=== PATIENT | female | born 1940 | race Caucasian/White ===

== ENCOUNTER 2023-02-20 15:54 | Outpatient (AMB) | payer MEDICARE, SELFPAY ==
--- NOTE | 2023-02-20 16:00 | HO.NEPHOV ---
HPI HPI Comments History of Present Illness Details Gwen is a delightful 82-year-old female whom I had the pleasure of seeing in follow-up of her history of hypertension and mild proteinuria on a background of acquired absence of one kidney. She carries a diagnosis of liver cirrhosis. It had been compensated but there had been mentions of liver dysfunction during her recent hospitalizations. Her blood sugar control continues to be suboptimal. She has no edema, abdominal distention, weight gain, abdominal pain, nausea, vomiting, diarrhea, hematemesis, melena, confusion or reduced urine output. Her appetite is good. She is regularly followed up by her primary care team. She was accompanied by her daughter during this current office visit. [facility] Medical History (Updated 02/21/23 @ 04:49 by Diego Linton MD) CHF (congestive heart failure) CVA (cerebral vascular accident) CAD (coronary artery disease) Anemia of chronic disease Liver cirrhosis Hypertension Proteinuria Surgical History (Updated 02/20/23 @ 16:12 by Barbara Lora MA) History of nephrectomy Social History (Updated 02/20/23 @ 16:12 by Barbara Lora MA) Alcohol intake: never Patient Tobacco Use Status: Never used Tobacco Vital Signs 02/20/23 16:01 Height 4 ft 11 in Weight 167 lb 4 oz BMI 33.8 BP 130/70 Blood Pressure Location Rt brachial Position Sitting Pulse 99 Pulse Source Pulse Oximeter Pulse Oximetry (%) 98 Oxygen Delivery Method Room Air Physical Exam Vital Signs: Last Vital Signs Pulse 99 02/20/23 16:01 BP 130/70 02/20/23 16:01 Pulse Ox 98 02/20/23 16:01 Oxygen Delivery Method Room Air 02/20/23 16:01 BMI result Body Mass Index 33.8 Const General: comfortable and no acute distress Orientation/consciousness: patient oriented x3 HEENT Head: Yes normocephalic Mouth: Normal oral and palatal mucosa present Eyes EOM: EOMs intact bilaterally Neck Neck: Yes supple Resp Auscultation: clear to auscultation bilaterally Cardio Jugular venous distension: no JVD Rate: regular rate GI Palpation (GI): Soft to palpation Auscultation: normal bowel sounds General: Yes no CVA tenderness Back/Spine/Pelvis Back: no CVA tenderness Skin General skin exam: no rashes or lesions noted Neuro General: patient oriented x3 and moves all extremities Extrem General: Yes no pedal edema Assessment & Plan Assessment & Plan (1) Acquired solitary kidney: Code(s): Z90.5 - Acquired absence of kidney (2) Hypertension: Code(s): I10 - Essential (primary) hypertension Qualifiers: Hypertension type: primary hypertension Qualified Code(s): I10 - Essential (primary) hypertension (3) Anemia of chronic disease: Code(s): D63.8 - Anemia in other chronic diseases classified elsewhere Plan Gwen had unilateral renal cell cancer and had undergone nephrectomy. She has diabetic, hypertensive with history of compensated liver cirrhosis. She has history of coronary artery disease, CVA as well as CHF. Her blood sugar control needs to be better. She has been initiated on Jardiance. Her renal functions had been stable. Her urine output is good. Her volume status was optimal. She avoids nonsteroidal anti-inflammatories and excess sodium in the diet. I did not make any medication changes today. All her and her daughter's questions were answered. Follow-up blood work ordered. Follow-up given. Orders: Orders Electrolytes 02/20/23 I10 - Essential (primary) hypertension, Z90.5 - Acquired absence of kidney Blood Urea Nitrogen 02/20/23 I10 - Essential (primary) hypertension, Z90.5 - Acquired absence of kidney Protein Creatinine Ratio, Ur 02/20/23 I10 - Essential (primary) hypertension, Z90.5 - Acquired absence of kidney Creatinine 02/20/23 I10 - Essential (primary) hypertension, Z90.5 - Acquired absence of kidney Calcium 02/20/23 I10 - Essential (primary) hypertension, Z90.5 - Acquired absence of kidney Coding Level of Care Code Est Pt Level 4 (02406) Diagnoses Acquired solitary kidney Z90.5 Primary hypertension I10 Hypertension type: primary hypertension Anemia of chronic disease D63.8 Results Reviewed Nephrology Results: No Data to Display
[2023-02-20 16:01] VITALS: BP 130/70; PULSE 99; O2SAT 98; BMI 33.8
== END 2023-02-20 16:28 | disposition home or self-care (01) ==
PROVIDERS: Visit Provider Internal Medicine Nephrology
DX: Z90.5 Acquired absence of kidney (principal); I10 Essential (primary) hypertension; D63.8 Anemia in other chronic diseases classified elsewhere
CPT/HCPCS: 99214

== ENCOUNTER → 2023-02-20 15:54 | Outpatient (BNVA) | payer MEDICARE, SELFPAY | PROVIDERS: Visit Provider Internal Medicine Nephrology | DX: I10 Essential (primary) hypertension (principal); D63.8 Anemia in other chronic diseases classified elsewhere; Z90.5 Acquired absence of kidney | CPT/HCPCS: 99212 ==

== ENCOUNTER 2023-10-21 15:46 | Outpatient (AMB) | payer MEDICARE, SELFPAY ==
--- NOTE | 2023-10-21 16:18 | HO.NEPHOV_ITS ---
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 She carries a diagnosis of liver cirrhosis. It had been compensated. Her blood sugar control continues to be suboptimal. She has no edema, abdominal distention, weight gain, abdominal pain, nausea, vomiting, diarrhea, hematemesis, melena, confusion or reduced urine output. Her appetite is good. She is regularly followed up by her primary care team. She was accompanied by her daughter during this current office visit. Her serum K has gone upto 5.7 PFSH Medical History (Updated 10/21/23 @ 19:05 by Diego Linton MD) CHF (congestive heart failure) CVA (cerebral vascular accident) CAD (coronary artery disease) Anemia of chronic disease Liver cirrhosis Hypertension Proteinuria Surgical History History of nephrectomy Social History Alcohol intake: never Patient Tobacco Use Status: Never used Tobacco Review of Systems Const All systems reviewed & are unremarkable except as noted in HPI and below Physical Exam Vital Signs: Last Vital Signs Pulse 100 10/21/23 16:19 BP 100/60 10/21/23 16:19 Pulse Ox 96 10/21/23 16:19 Oxygen Delivery Method Room Air 10/21/23 16:19 BMI result Body Mass Index 30.6 Const General: comfortable and no acute distress Orientation/consciousness: patient oriented x3 HEENT Head: Yes normocephalic Mouth: Normal oral and palatal mucosa present Eyes EOM: EOMs intact bilaterally Neck Neck: Yes supple Resp Auscultation: clear to auscultation bilaterally Cardio Jugular venous distension: no JVD Rate: regular rate GI Palpation (GI): Soft to palpation Auscultation: normal bowel sounds General: Yes no CVA tenderness Back/Spine/Pelvis Back: no CVA tenderness Skin General skin exam: no rashes or lesions noted Neuro General: patient oriented x3 and moves all extremities Extrem General: Yes no pedal edema Results Reviewed Nephrology Results: No Data to Display Assessment & Plan Assessment & Plan (1) Hypertension: Code(s): I10 - Essential (primary) hypertension Category: Medical Qualifiers: Hypertension type: primary hypertension Qualified Code(s): I10 - Essential (primary) hypertension (2) Acquired solitary kidney: Code(s): Z90.5 - Acquired absence of kidney Category: Medical (3) CKD stage 3a, GFR 45-59 ml/min: Code(s): N18.31 - Chronic kidney disease, stage 3a Category: Medical (4) Hyperkalemia: Code(s): E87.5 - Hyperkalemia Category: Medical Plan Gwen had unilateral renal cell cancer and had undergone nephrectomy. She has diabetic, hypertensive with history of compensated liver cirrhosis. She has history of coronary artery disease, CVA as well as CHF. Her blood sugar control needs to be better. She has been initiated on Jardiance. Her renal functions had been stable. Her urine output is good. Her volume status was optimal. She avoids nonsteroidal anti-inflammatories and excess sodium in the diet. Her serum K is high. She needs Kayexalate 30 Gram or Lokelma 10 Gram one dose to keep K lower. Her Spironolactone needs to be dropped to 50 mg daily. She wants these instructions communicated to [facility]. She needs follow up K checked. I did not make any medication changes today. All her and her daughter's questions were answered. Follow-up blood work ordered. Follow-up given. Orders: Orders Creatinine Today I10 - Essential (primary) hypertension, N18.31 - Chronic kidney disease, stage 3a, Z90.5 - Acquired absence of kidney Electrolytes Today I10 - Essential (primary) hypertension, N18.31 - Chronic kidney disease, stage 3a, Z90.5 - Acquired absence of kidney Blood Urea Nitrogen Today I10 - Essential (primary) hypertension, N18.31 - Chronic kidney disease, stage 3a, Z90.5 - Acquired absence of kidney Coding Level of Care Code Est Pt Level 4 (91992) Diagnoses Primary hypertension I10 Hypertension type: primary hypertension Acquired solitary kidney Z90.5 CKD stage 3a, GFR 45-59 ml/min N18.31 Hyperkalemia E87.5
[2023-10-21 16:19] VITALS: BP 100/60; PULSE 100; O2SAT 96; BMI 30.6
== END 2023-10-21 16:37 | disposition home or self-care (01) ==
PROVIDERS: Visit Provider Internal Medicine Nephrology
DX: I10 Essential (primary) hypertension (principal); Z90.5 Acquired absence of kidney; N18.31 Chronic kidney disease, stage 3a; E87.5 Hyperkalemia
CPT/HCPCS: 99214

== ENCOUNTER → 2023-10-21 15:46 | Outpatient (BNVA) | payer MEDICARE, SELFPAY | PROVIDERS: Visit Provider Internal Medicine Nephrology | DX: I12.9 Hypertensive chronic kidney disease with stage 1 through stage 4 chronic kidney disease, or unspecified chronic kidney disease (principal); E87.5 Hyperkalemia; Z90.5 Acquired absence of kidney; N18.31 Chronic kidney disease, stage 3a | CPT/HCPCS: 99212 ==

== ENCOUNTER 2024-04-13 15:55 | Outpatient (AMB) | payer MEDICARE, SELFPAY ==
--- NOTE | 2024-04-13 16:35 | HO.NEPHOV ---
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 She carries a diagnosis of liver cirrhosis. It had been compensated. Her blood sugar control continues to be suboptimal. She has no edema, abdominal distention, weight gain, abdominal pain, nausea, vomiting, diarrhea, hematemesis, melena, confusion or reduced urine output. Her appetite is good. She is regularly followed up by her primary care team. She was accompanied by her daughter during this current office visit. Her serum K is normal [facility] Medical History (Updated 10/21/23 @ 19:05 by Diego Linton MD) CHF (congestive heart failure) CVA (cerebral vascular accident) CAD (coronary artery disease) Anemia of chronic disease Liver cirrhosis Hypertension Proteinuria Surgical History History of nephrectomy Social History Alcohol intake: never Patient Tobacco Use Status: Never used Tobacco Review of Systems Const All systems reviewed & are unremarkable except as noted in HPI and below Physical Exam Vital Signs: Last Vital Signs BP 120/60 04/13/24 16:36 BMI result Body Mass Index 30.3 Const General: comfortable and no acute distress Orientation/consciousness: patient oriented x3 HEENT Head: Yes normocephalic Mouth: Normal oral and palatal mucosa present Eyes EOM: EOMs intact bilaterally Neck Neck: Yes supple Resp Auscultation: clear to auscultation bilaterally Cardio Jugular venous distension: no JVD Rate: regular rate GI Palpation (GI): Soft to palpation Auscultation: normal bowel sounds General: Yes no CVA tenderness Back/Spine/Pelvis Back: no CVA tenderness Skin General skin exam: no rashes or lesions noted Neuro General: patient oriented x3 and moves all extremities Extrem General: Yes no pedal edema Results Reviewed Nephrology Results: No Data to Display Assessment & Plan Assessment & Plan (1) CKD stage 3a, GFR 45-59 ml/min: Code(s): N18.31 - Chronic kidney disease, stage 3a Category: Medical (2) Anemia of chronic disease: Code(s): D63.8 - Anemia in other chronic diseases classified elsewhere Category: Medical (3) Hypertension: Code(s): I10 - Essential (primary) hypertension Category: Medical Qualifiers: Hypertension type: primary hypertension Qualified Code(s): I10 - Essential (primary) hypertension (4) Acquired solitary kidney: Code(s): Z90.5 - Acquired absence of kidney Category: Medical Plan Gwen had unilateral renal cell cancer and had undergone nephrectomy. She has diabetic, hypertensive with history of compensated liver cirrhosis. She has history of coronary artery disease, CVA as well as CHF. Her blood sugar control needs to be better. She has been initiated on Jardiance which can be increased to 25 mg daily. Her renal functions had been stable. Her urine output is good. Her volume status was optimal. She avoids nonsteroidal anti-inflammatories and excess sodium in the diet. She needs follow up K checked. I did not make any other medication changes today. All her and her daughter's questions were answered. Follow-up blood work ordered. Follow-up given. Orders: Orders Blood Urea Nitrogen 6 Months D63.8 - Anemia in other chronic diseases classified elsewhere, I10 - Essential (primary) hypertension, N18.31 - Chronic kidney disease, stage 3a, Z90.5 - Acquired absence of kidney Electrolytes 6 Months D63.8 - Anemia in other chronic diseases classified elsewhere, I10 - Essential (primary) hypertension, N18.31 - Chronic kidney disease, stage 3a, Z90.5 - Acquired absence of kidney Creatinine 6 Months D63.8 - Anemia in other chronic diseases classified elsewhere, I10 - Essential (primary) hypertension, N18.31 - Chronic kidney disease, stage 3a, Z90.5 - Acquired absence of kidney Coding Level of Care Code Est Pt Level 4 (02228) Diagnoses CKD stage 3a, GFR 45-59 ml/min N18.31 Anemia of chronic disease D63.8 Primary hypertension I10 Hypertension type: primary hypertension Acquired solitary kidney Z90.5
[2024-04-13 16:36] VITALS: BP 120/60; BMI 30.3
--- OUTSIDE RECORDS SUMMARY | 2024-04-13 19:54 | XMS_ITS | Clinical Summary ---
Author Organization [facility] Address [address] [facility] [address] [place] [address] Phone Care Team Providers Care Business Systems Lead Name Role Phone Tran Morse MD Primary Care Provider [phone] Allergies Active Allergy Reactions Criticality Noted Date Comments Hydrocodone-Acetaminophen Other (see comments) 12/08/2020 Medications allopurinol (ZYLOPRIM) 100 MG tablet Take 1 tablet by mouth 1 (one) time each day Active apixaban (ELIQUIS) 5 MG tablet Take 1 tablet by mouth 2 (two) times a day Active cholecalciferol (VITAMIN D-3) 25 MCG (1000 UT) capsule Take 1 capsule by mouth 1 (one) time each day Active Dulaglutide (Trulicity) 0.75 MG/0.5ML solution pen-injector Active levothyroxine (SYNTHROID, LEVOTHROID) 75 MCG tablet Take 1 tablet by mouth 1 (one) time each day 1.5 tab on Sun Active pregabalin (LYRICA) 50 MG capsule Take 1 capsule by mouth 2 (two) times a day Active rosuvastatin (CRESTOR) 20 MG tablet Take 1 tablet by mouth 1 (one) time each day Active metoprolol tartrate (LOPRESSOR) 50 MG tablet Take 50 mg by mouth in the morning and 50 mg in the evening. Active albuterol HFA (PROVENTIL HFA;VENTOLIN HFA) 108 (90 Base) MCG/ACT inhaler 2 Active ascorbic acid (VITAMIN C) 500 MG tablet Take 500 mg by mouth 1 (one) time each day Active benzonatate (TESSALON) 200 MG capsule Take 200 mg by mouth 3 (three) times a day if needed for cough Do not crush or chew. Active docusate sodium (COLACE) 100 MG capsule Take 100 mg by mouth if needed for constipation Active ferrous sulfate 325 (65 Fe) MG tablet Take 325 mg by mouth in the morning and 325 mg in the evening. Active tamsulosin (Flomax) 0.4 MG 24 hr capsule Take 0.4 mg by mouth 1 (one) time each day Active furosemide (LASIX) 40 MG tablet Take 40 mg by mouth 1 (one) time each day Active potassium chloride 10 MEQ CR tablet Take 10 mEq by mouth 1 (one) time each day Do not crush, chew, or split. Active magnesium hydroxide (MILK OF MAGNESIA) 400 MG/5ML suspension Take by mouth 1 (one) time each day if needed for constipation Active mirtazapine (REMERON) 7.5 MG tablet Take 7.5 mg by mouth every night Active famotidine (PEPCID) 20 MG tablet Take 20 mg by mouth in the morning. Active pantoprazole (PROTONIX) 40 MG EC tablet Take 40 mg by mouth 1 (one) time each day before breakfast Do not crush, chew, or split. Active senna (SENOKOT) 8.6 MG tablet Take 2 tablets by mouth 1 (one) time each day Active simethicone (MYLICON) 80 MG chewable tablet Chew 80 mg every 6 (six) hours if needed for flatulence Active spironolactone (ALDACTONE) 100 MG tablet Take 100 mg by mouth 1 (one) time each day Active Active Problems Problem Noted Date Diagnosed Date Family history of transient ischemic attack 02/10 Cerebrovascular accident 06/28/2021 Overview (06/28/2021): residual left side weakness History of total hysterectomy 06/28/2021 Renal cell carcinoma 06/28/2021 Overview (06/28/2021): s/p nephrectomy Stage 3a chronic kidney disease 06/28/2021 Anemia of chronic disease 06/28/2021 Heart failure with reduced ejection fraction 04/2021 Chronic kidney disease 12/08/2020 Essential hypertension 12/08/2020 Hypertensive renal disease 12/08/2020 Microalbuminuria 12/08/2020 Total nephrectomy 12/08/2020 Hypertension 12/08/2020 Resolved Problems Problem Noted Date Diagnosed Date Resolved Date Ex-smoker 06/28/2021 12/20/2021 Family history of cancer of colon 06/28/2021 12/20/2021 Fibromyositis 06/28/2021 12/20/2021 Gout 06/28/2021 12/20/2021 Family history of transient ischemic attack 06/28/2021 12/20/2021 Obese class II 06/28/2021 12/20/2021 Abnormal gait 06/12/2021 12/20/2021 Depressive disorder 12/08/2020 12/09/19 21 Hyperlipidemia 12/08/2020 12/08/2020 Hypothyroidism 12/08/2020 12/08/2020 Myocardial infarction 12/08/20202020 Cerebral infarction 12/08/2020 12/09/19 21 Type 2 diabetes mellitus 12/08/2020 Acute pharyngitis 03/01/2019 12/08/2020 Acute upper respiratory infection 03/01/2019 12/08/2020 Cardiac pacemaker in situ 08/20/1999 Overview (06/28/2021): with defib History of myocardial infarction 01/19/1999 12/20/2021 Overview (06/28/2021): first PR at 1998-then had angioplasty Immunizations Name Administration Dates Next Due Influenza Whole 11/14/2008 Pfizer SARS-COV-2 12/18/2020,03/19/2020,02/26/19 21 Pneumococcal Conjugate 13-Valent 11/09/2014 Pneumococcal Polysaccharide 08/14/2017, 5 Td, Unspecified 02/27/2007 Tdap 10/31/2016 Family History Medical History Relation Comments Heart disease Mother Hypertension Mother Relation Status Comments Father Mother Social History Tobacco Use Types Packs/Day Years Used Date Smoking Tobacco: Former Cigarettes Q uit: 02/11/2008 Smokeless Tobacco: Never Tobacco Cessation:Counseling Given: Not Answered Comments:Smoking History Info:Every day Alcohol Use Standard Drinks/Week Comments No 0 (1 standard drink = 0.6 oz pur e alcohol) Comments Unknown Sex and Gender Information Value Date Recorded Sex Assigned at Not on file Legal Sex Female 4:47 PM EST Gender Identity Not on file Sexual Orientation Not on file Last Filed Vital Signs Vital Sign Reading Time Taken Comments Blood Pressure 114/70 02/21/2022 4:19 PM EST Pulse 56 06/28/2021 3:19 PM EDT Temperature - - Respiratory Rate - - Oxygen Saturation 96% 12/08/2020 4:27 PM EDT Inhaled Oxygen Concentration - - Weight 73.5 kg (162 lb) 02/21/2022 4:19 PM EST Height 150 cm (4' 11.06 ) 02/21/2022 4:19 PM EST Body Mass Index 32.66 02/21/2022 4:19 PM EST Plan of Treatment Health Maintenance Due Date Last Done Comments Influenza Vaccine (#1) 2023 11/14/2008 Pneumococcal Vaccine: 65+ Years Completed 08/14/2017, 11/09/2014, 12/24/2004 Hepatitis B Vaccine Aged Out No longe r eligible based on patient's age to complete this topic [place] [address] [place] [address] [place] [address] Care Teams Business Systems Lead Relationship Specialty Start Date End Date Tran Morse MD [address], [place] PCP - General 02/21/20
== END 2024-04-13 16:50 | disposition home or self-care (01) ==
PROVIDERS: Visit Provider Internal Medicine Nephrology
DX: N18.31 Chronic kidney disease, stage 3a (principal); D63.8 Anemia in other chronic diseases classified elsewhere; I10 Essential (primary) hypertension; Z90.5 Acquired absence of kidney
CPT/HCPCS: 99214

== ENCOUNTER → 2024-04-13 15:55 | Outpatient (BNVA) | payer MEDICARE, SELFPAY | PROVIDERS: Visit Provider Internal Medicine Nephrology | DX: I12.9 Hypertensive chronic kidney disease with stage 1 through stage 4 chronic kidney disease, or unspecified chronic kidney disease (principal); N18.31 Chronic kidney disease, stage 3a; D63.8 Anemia in other chronic diseases classified elsewhere; Z90.5 Acquired absence of kidney | CPT/HCPCS: 99212 ==